=== PATIENT | male | born 1995 | race Caucasian/White ===

== ENCOUNTER 2017-07-21 18:50 | Emergency (ER) | payer OTHER ==
[~2017-07-21] VITALS: Ht 180.3 cm; Wt 82.8 kg
[~2017-07-21 18:50] MED LIST: CLINDAMYCIN HC300 MG PO; NORCO 5/3251 TABLET PO; RITALIN; VYVANSE
[2017-07-21] MEDS ORDERED: VICODIN 5-3001 EACH PO (22:11)
[2017-07-21 22:27] VITALS: BP 124/69
== END 2017-07-21 22:31 | disposition home or self-care (01) ==
LOC: EME 18:50
PROC: 2W3RX1Z Immobilization of Left Lower Leg using Splint (ICD-10-PCS; principal; 2017-07-21)
DX: S82.852A Displaced trimalleolar fracture of left lower leg, initial encounter for closed fracture (principal); M54.2 Cervicalgia; R51 Headache; V80.010A Animal-rider injured by fall from or being thrown from horse in noncollision accident, initial encounter; Y93.52 Activity, horseback riding; F17.200 Nicotine dependence, unspecified, uncomplicated
CPT/HCPCS: 70450; 72125; 73610; 99281; 99284